=== PATIENT | male | born 1940 | race Caucasian/White ===

== ENCOUNTER 2016-08-21 14:19 | Observation (INO) ==
[2016-08-21] MEDS ORDERED: D50W SYRINGE ONE (14:29)
[2016-08-21] MEDS ORDERED: D50W SYRINGE IV ONE (14:30)
[2016-08-21] MEDS ORDERED: D5 NS 1,000 ML IV ONE ×2 (14:30→18:58)
[2016-08-21] MEDS ORDERED: D5 NS 1,000 ML ONE (14:30)
[2016-08-21 14:46] LABS: MANUAL DIFF NEEDED? NO
[2016-08-21 15:02] LABS: HEMATOCRIT 41.7 % (42.0-52.0); HEMOGLOBIN 13.6 g/dL (14.0-18.0); MCV 88.5 FL (81-99); RBC 4.71 XMIL (4.7-6.1)
[2016-08-21 15:03] LABS: BASO% 0.3 % (0.0-0.8); EOS# 0.06 X1000 (0.0-0.7); EOS% 0.8 % (0.0-10.0); LYMPH# 2.33 X1000 (1.2-3.4); LYMPH% 29.8 % (20.5-51.1); MCH 28.9 PG (27-31); MCHC 32.6 g/dL (33-37); MONO# 1.27 X1000 (0.11-0.59); MONO% 16.3 % (1.7-9.3); MPV 11.5 FL (7.4-10.4); NEUT% 52.7 % (42.2-75.2); PLT 277 X1000 (130-400)
[2016-08-21 15:09] LABS: INR 0.94 (0.86-1.15); PROTIME 12.9 Seconds (12.1-15.5); PTT PL 31.2 Seconds (22.6-43.9)
[2016-08-21 15:50] LABS: AGAP 9; ALBUMIN 3.8 g/dL (3.5-5.0); ALKALINE PHOSPHATASE 41 U/L (32-122); BUN 37 mg/dL (8-22); CALCIUM 8.8 mg/dL (8.8-10.2); CHLORIDE 95 mmol/L (98-107); CK PROFILE 153 U/L (24-204); COSMO 277; GOT 44 U/L (10-34); GPT 21 U/L (10-44); SODIUM 135 mmol/L (136-145); TCO2 30 mmol/L (25-35); TOTAL PROTEIN 7.2 g/dL (6.3-8.3)
--- NOTE | 2016-08-21 16:25 | EKG Report ---
Test Performed on : 08/21/2016 2:34:41 PM Test Reason : AMS Blood Pressure : / mmHG Vent. Rate : 063 BPM Atrial Rate : 063 BPM P-R Int : 268 ms QRS Dur : 106 ms QT Int : 406 ms P-R-T Axes : 076 057 055 degrees QTc Int : 415 ms Sinus rhythm. with 1st degree AV block. Otherwise normal ECG No previous ECGs available Unconfirmed Result
--- NOTE | 2016-08-21 16:51 | Diag Imaging Result Document ---
PROCEDURE NAME: CHEST-2 VIEWS - 08/21/2016 CHEST 2 VIEWS: COMPARISON: No comparison exam. FINDINGS: Heart size is normal. There is mild subsegmental atelectasis at the left base. There is a small opacity at the anterior right perihilar region. This may represent nodular lesion or small infiltrate. There is no other consolidation, pleural effusion, or pneumothorax identified. There is thoracic spondylosis or ankylosis noted. IMPRESSION: 1. Small opacity at right anterior perihilar region which may represent nodular lesion or small infiltrate. Followup by chest radiographs or correlation with CT thorax is recommended. 2. Mild atelectasis at left base.
--- NOTE | 2016-08-21 17:22 | ED EKG INTERP ---
This chart was entered by Amy Hung Scribe, acting as scribe for Carl Badillo MD. EKG Interpretation - EKG Time of EKG reading by physician:: 14:34 EKG Read and Signed by:: Carl Badillo EKG Interpretation (*Must complete 3 of following elements*): Normal Rate: 63 Rhythm: sinus rhythm with 1st degree AV block [place]: normal QRS: normal [place] Interval: normal ST Wave: normal This chart was documented by the indicated scribe, (Amy Hung Scribe) and accurately reflects the services I performed and decisions made by Aby goode Michael L., MD, as attested by the provider's signature.
--- NOTE | 2016-08-21 18:07 | PROVIDER DOCUMENTATION ---
This chart was entered by Amy Hung Scribe, acting as scribe for Carl Badillo MD. HPI-General Adult - General Chief Complaint: Low Blood Sugar Stated Complaint: AMS/BLOOD SUGAR Time Seen by Provider: 08/21/16 17:21 Source: patient, family Allergies/Adverse Reactions: Patient Allergies Allergy/AdvReac Type Severity Reaction Status Date / Time No Known Allergies Allergy Verified 08/21/16 14:25 Home Medications: Home Medication List Medication Instructions Recorded Confirmed Last Taken Type Aspirin [Aspir-Low] 1 tab PO 08/21/16 Unknown History Furosemide 40 mg PO DAILY 08/21/16 08/21/16 Unknown History Glyburide/Metformin [Glucovance 1 each PO BID CC 08/21/16 08/21/16 Unknown History 5-500 mg Tablet] Lisinopril/Hydrochlorothiazide 1 each PO DAILY 08/21/16 08/21/16 Unknown History [Zestoretic 20-12.5 mg Tablet] Metoprolol Succinate E.r. [Toprol PO DAILY 08/21/16 Unknown History Xl] Multivitamins/Minerals [Centrum 1 each PO DAILY 08/21/16 08/21/16 Unknown History Silver] [place]-3/Dha/Epa/Fish Oil [Fish Oil 1 each PO 08/21/16 Unknown History [place]-3 EC 1,200 mg] Pioglitazone HCl [Actos] 45 mg PO 08/21/16 Unknown History Potassium Chloride E.r. [Klor-Con] 1 tab PO 08/21/16 Unknown History Pravastatin Sodium 1 tab PO DAILY 08/21/16 08/21/16 Unknown History - History of Present Illness -Gen Adult Nature of Presenting Problems: 75 year old male presents to the ER via EMS for AMS. Pt is diabetic and has not been eating well the past couple of days. Pt had slurred speech and lethargic. Onset/Duration: reports: last night Timing: reports: still present Review of Systems - Adult - REVIEW OF SYSTEMS - ADULT Constitutional: denies: chills, fever Eyes: reports: no symptoms reported Ears, Nose, Mouth & Throat: reports: no symptoms reported Cardiovascular: reports: no symptoms reported Respiratory: reports: no symptoms reported Gastrointestinal: reports: no symptoms reported Genitourinary: reports: no symptoms reported Musculoskeletal: reports: no symptoms reported Integumentary: reports: no symptoms reported Neurological: reports: slurred speech, other (AMS) Psychiatric: reports: no symptoms reported Endocrine: reports: no symptoms reported Hematologic/Lymphatic: reports: no symptoms reported Allergic/Immunologic: reports: no symptoms reported All Other Systems: Reviewed and Negative Past History - Adult - PAST MEDICAL HISTORY-ADULT Review of Records: reports: Nursing Assessment Review, Medications Reviewed - IMMUNIZATION STATUS Childhood Immunizations: See Nurse Assessment Flu Vaccine: See Nurse Assessment Physical Exam-General - CONSTITUTIONAL General Appearance: alert, no apparent distress - EYES Eyes: PERRL/EOMI, pink conjunctivae - HEAD, EARS, NOSE, MOUTH & THROAT HENMT: normocephalic/atraumatic, moist mucous membranes - NECK Neck: non-tender, normal inspection - RESPIRATORY Respiratory: lungs clear, normal breath sounds - CARDIOVASCULAR Cardiovascular: normal peripheral pulses, regular rate, rhythm - MUSCULOSKELETAL Back Exam: no CVA tenderness, no vertebral tenderness Extremity: non-tender, normal inspection - SKIN Integumentary: normal color, warm/dry - NEUROLOGIC Neurologic: grossly normal, other (AMS) - PSYCHIATRIC Psych/Mental Status: disoriented x 3 Progress - PLAN OF CARE/RESULTS Progress/Plan/Lab Results: Vital Signs - 8 hr 08/21/16 14:25 Temperature 97.5 F L Pulse Rate 64 Respiratory Rate 20 Blood Pressure 133/063 O2 Sat by Pulse Oximetry 91 L Laboratory Results - last 24 hr 08/21/16 08/21/16 08/21/16 14:35 14:37 14:37 WBC 7.81 RBC 4.71 Hgb 13.6 L Hct 41.7 L MCV 88.5 MCH 28.9 MCHC 32.6 L RDW Std Deviation 15.9 H Plt Count 277 MPV 11.5 H Neut % (Auto) 52.7 Lymph % (Auto) 29.8 [place] % (Auto) 16.3 H Eos % (Auto) 0.8 Baso % (Auto) 0.3 Neut # (Auto) 4.12 Lymph # (Auto) 2.33 [place] # (Auto) 1.27 H Eos # (Auto) 0.06 Baso # (Auto) 0.02 PT INR APTT (Factor Assay) Sodium Potassium Chloride Carbon Dioxide Anion Gap BUN Creatinine BUN/Creatinine Ratio Glucose Calculated Osmolality Calcium Total Bilirubin AST ALT Alkaline Phosphatase Creatine Kinase Troponin T Total Protein Albumin Globulin Albumin/Globulin Ratio Plasma Lactate 2.2 Influenza A (Rapid) NEGATIVE Influenza B (Rapid) NEGATIVE 08/21/16 08/21/16 08/21/16 14:37 15:20 15:20 WBC RBC Hgb Hct MCV MCH MCHC RDW Std Deviation Plt Count MPV Neut % (Auto) Lymph % (Auto) [place] % (Auto) Eos % (Auto) Baso % (Auto) Neut # (Auto) Lymph # (Auto) [place] # (Auto) Eos # (Auto) Baso # (Auto) PT 12.9 INR 0.94 APTT (Factor Assay) 31.2 Sodium 135 L Potassium 4.0 Chloride 95 L Carbon Dioxide 30 Anion Gap 9 BUN 37 H Creatinine 1.0 BUN/Creatinine Ratio 37 Glucose 68 L Calculated Osmolality 277 Calcium 8.8 Total Bilirubin 0.20 AST 44 H ALT 21 Alkaline Phosphatase 41 Creatine Kinase 153 Troponin T < 0.010 Total Protein 7.2 Albumin 3.8 Globulin 3.0 Albumin/Globulin Ratio 1.0 Plasma Lactate Influenza A (Rapid) Influenza B (Rapid) Orders Category Date Time Status Cardiac Monitoring DIRECTED Care 08/21/16 14:27 Active Finger Stick Blood Sugar (ED) DIRECTED Care 08/21/16 14:27 Active Oxygen Therapy- ED Nursing DIRECTED Care 08/21/16 14:27 Active Saline Loc NOW Care 08/21/16 14:27 Active CHEST-2 VIEWS [RAD] Stat Exams 08/21/16 14:27 Draft BLOOD CULTURE [BLDCUL] Stat Lab 08/21/16 14:48 Ordered CBC WITH ELECTRONIC DIFF [HEME] Stat Lab 08/21/16 14:37 Completed CK PROFILE [SP CHEM] Stat Lab 08/21/16 15:20 Completed COMPREHENSIVE METABOLIC PANEL [CHEM] Stat Lab 08/21/16 15:20 Completed Flu [INFLUENZA SCREEN PL] Stat Lab 08/21/16 14:35 Completed LACTATE, PLASMA [CHEM] Stat Lab 08/21/16 14:37 Com[address]IME WITH INR [address] [COAG] Stat Lab 08/21/16 14:[address] [COAG] Stat Lab 08/21/16 14:37 Completed TROPONIN T Stat Lab 08/21/16 15:20 Completed Dextrose 5%-0.9% NaCl Inj [D5 Ns] 1,000 ml Med 08/21/16 14:30 Discontinued .ROUTE As Directed Dextrose 5%-0.9% NaCl Inj [D5 Ns] 1,000 ml Med 08/21/16 14:30 Active IV 100 mls/hr Dextrose 50% Syringe [D50w Syringe] Med 08/21/16 14:29 Discontinued 50 ml .ROUTE .STK-MED ONE Dextrose 50% Syringe [D50w Syringe] Med 08/21/16 14:30 Discontinued 50 ml IV NOW ONE Pulse Oximetry Stat Oth 08/21/16 14:27 Active EKG [EKG] Stat Ther 08/21/16 14:27 Draft Result Diagrams: 08/21/16 14:37 08/21/16 15:20 - XRAY 1 XRAY Study: Chest Impression: Abnormal XRAY Interpretation: small opacity @ right perhilar region Departure - Departure Time of Disposition Decision: 18:06 DIAGNOSIS: Hypoglycemia secondary to sulfonylurea Qualifiers: Encounter type: initial encounter Injury intent: accidental or unintentional Qualified Code(s): T38.3X1A - Poisoning by insulin and oral hypoglycemic [ antidiabetic] drugs, accidental (unintentional), initial encounter Disposition: ADMITTED INPATIENT 09 Certified Medical Emergency: Emergent Condition: Stable Referrals and Follow-Ups: Omid Wood MD [Primary Care Provider] - This chart was documented by the indicated scribe, (Amy Hung, Scribe) and accurately reflects the services I performed and decisions made by , Carl Badillo MD, as attested by the provider's signature.
[2016-08-21] MEDS ORDERED: LOVENOX SUBQ SCH (20:30)
[2016-08-21] MEDS ORDERED: PRAVACHOL PO SCH (21:00)
--- NOTE | 2016-08-21 21:11 | HISTORY AND PHYSICAL ---
CHIEF COMPLAINT: Altered mental status. HISTORY OF PRESENT ILLNESS: Mr. Villegas is a 75-year-old gentleman who was brought into the emergency room after his daughter found him to have slurred speech and lethargy. The patient states that she took his glyburide/metformin along with Actos this morning but did not eat his breakfast. This is the third time that this has happened to him over the past 3 months. He denies having any fall or any other trauma. He also denies having any chest pain, shortness of breath or dizziness at this time. He has completely improved at the time of this dictation. PAST MEDICAL HISTORY: 1. Type 2 diabetes mellitus. 2. Hypertension. 3. Dyslipidemia. 4. Morbid obesity. 5. COPD. 6. Congestive heart failure. ALLERGIES: No known drug allergies reported. CURRENT HOME MEDICATIONS: 1. Aspirin 81 mg orally once daily. 2. Metoprolol ER 50 mg orally once daily. 3. Glyburide/metformin 5 mg/500 mg orally twice daily. 4. Lisinopril/hydrochlorothiazide 20 mg/12.5 mg orally once daily in the morning. 5. Furosemide 40 mg orally once daily. 6. Potassium chloride 20 mEq orally once daily. 7. Pravastatin 40 mg orally once daily at bedtime. 8. Actos 45 mg orally once daily. 9. Multivitamin orally once daily. 10. [place]-3 fish oil capsule 1200 mg orally once daily. SOCIAL HISTORY: The patient quit smoking in 1990 after smoking 2-3 packs of cigarettes per day for about 35 years. He denies drinking alcohol and has never used any recreational drugs. He lives here in [place] with his . FAMILY HISTORY: Noncontributory. REVIEW OF SYSTEMS: A full 14-point review of system was obtained that was pretty much the same as already has been explained in the HPI. PHYSICAL EXAMINATION: VITAL SIGNS: Temperature 98.8 degrees, pulse 72 per minute, respiratory rate 18 per minute, blood pressure 140/52, pulse oximetry 94% on room air. GENERAL: Patient is alert and oriented x3. He does not appear to be in any acute distress at this time. HEENT: Within normal limits. NECK: Supple without any thyromegaly. LYMPHATICS: No lymphadenopathy noted in the neck region. CHEST: Chest wall is nontender. CARDIOVASCULAR: First and second heart sounds are audible without any murmurs or gallops. RESPIRATORY: Bilateral lung air entry is somewhat decreased, but there are no rales or rhonchi present on auscultation. GASTROINTESTINAL: Patient is morbidly obese. Abdomen is soft and nontender on palpation. Normal bowel sounds are present. MUSCULOSKELETAL: No deformities are present. PSYCHIATRIC: Normal affect noted. NEUROLOGIC: No focal deficits are present. GENITOURINARY: Deferred. INTEGUMENTARY: Skin is warm, dry, and without any rash. DIAGNOSTIC DATA: CBC is nondiagnostic and PT/INR along with PTT are within normal limits. Chemistry showed glucose levels of 33 on presentation to the emergency room. But later on that improved to 68. BUN is slightly elevated at 37, but creatinine levels are normal at 1. Rest of the comprehensive metabolic panel is nondiagnostic. Cardiac enzymes have been negative, and influenza screen is also found to be negative. Chest x-ray obtained at the emergency room showed possible right anterior perihilar region pulmonary nodule. CT scan has been recommended for further evaluation. ECG obtained at the emergency room showed sinus rhythm with a ventricular rate of 63 beats per minute without any acute ischemic abnormalities. IMPRESSION: 1. Altered mental status with hypoglycemia in this 75-year-old gentleman who has history of diabetes and has other comorbid conditions including hypertension, dyslipidemia, chronic obstructive pulmonary disease, congestive heart failure, and morbid obesity. 2. Pulmonary nodule. PLAN: The patient has been admitted as observation, and we are going to hold his Actos along with glyburide/metformin at this time. He has been receiving D5 half NS at 100 mL per hour which will be continued. I am going to give him lispro insulin subcutaneously as per low- dose sliding scale, however. Would continue with the rest of his medications and obtain a CT scan of the chest with IV contrast for further evaluation of pulmonary nodule. VTE prophylaxis will be provided with enoxaparin 40 mg subcutaneously every 24 hours. The patient can probably be discharged home within the next 24 to 48 hours once his glucose levels are stabilized. cc: MD Omid Flowers MD MTDD
[2016-08-21] MEDS: HUMALOG DOSE (PARKWAY) SUBQ SCH (22:11)
[2016-08-22] MEDS: HUMALOG DOSE (PARKWAY) SUBQ SCH ×2 (06:19→12:57)
--- NOTE | 2016-08-22 08:51 | Diag Imaging Result Document ---
PROCEDURE NAME: CT THORAX W/CONTRAST - 08/22/2016 CT OF THE CHEST WITH INTRAVENOUS CONTRAST: FINDINGS: There is a rounded opacity in the inferior portion of the right upper lobe best seen around image 94. This measures 25 mm in diameter and has air bronchograms within it. This is just above the minor fissure. There are some scattered blebs. There is atelectasis or fibrosis in the left base. The esophagus is somewhat thickened in appearance particularly at the level of the aortic arch. There is no evidence of significant adenopathy. There are coronary calcifications. There are spondylotic changes in the thoracic spine. IMPRESSION: Focal opacity in the right upper lobe. This may represent a chronic infectious process; however, the possibility of neoplastic disease cannot be excluded and comparison with previous studies if available is recommended.
[2016-08-22] MEDS ORDERED: HYDROCHLOROTHIAZIDE PO SCH (09:00)
[2016-08-22] MEDS ORDERED: PRINIVIL PO SCH (09:00)
[2016-08-22] MEDS ORDERED: LASIX PO SCH (09:00)
[2016-08-22] MEDS ORDERED: ASPIRIN EC PO SCH (09:00)
[2016-08-22] MEDS ORDERED: FISH OIL CONCENTRATE PO SCH (09:00)
[2016-08-22] MEDS ORDERED: THERA M PLUS PO SCH (09:00)
[2016-08-22] MEDS ORDERED: TOPROL XL PO SCH (09:00)
[2016-08-22] MEDS ORDERED: KLOR-CON PO SCH (09:00)
[2016-08-22] MEDS ORDERED: SALINE LOCK IV FLUID XX ONE (09:21)
--- NOTE | 2016-08-22 09:52 | PROGRESS NOTE ---
DATE: 08/22/2016 OBJECTIVE: Vital signs: Vital signs stable with temperature 98.1 degrees, heart rate 72, respiration 18, blood pressure 138/61 O2. Saturation 91% on room air. Blood sugar has stabilized with the last 2 sugars being 126 and 125, respectively. Initially sugar was 63. His speech difficulty has resolved and neurologic status is baseline this morning. There is no focal weakness. There was a possible pulmonary nodule on chest x-ray and CT scan of his chest was done this morning. Results are pending. PLAN: Probably be discharged home this afternoon. IV is changed from D5 to saline lock. cc: Omid Wood MD
[2016-08-22] MEDS ORDERED: TYLENOL PO PRN ×2 (13:29→13:40)
[2016-08-22 14:59] VITALS: BP 137/60
--- NOTE | 2016-08-23 01:07 | DISCHARGE SUMMARY ---
ADMISSION DATE: 08/21/2016 DISCHARGE DATE: 08/22/2016 FINAL DIAGNOSES: 1. Hypoglycemia. 2. Type 2 diabetes. 3. Gross obesity. 4. Hyperlipidemia. 5. Hypertriglyceridemia. 6. Peripheral edema. 7. Small pulmonary nodule, right mid lung field, nonspecific by CT. HISTORY: This is the first recent [facility] admission for this 75-year-old, white man, diabetic, who took his medications, including glyburide, metformin and Actos, and did not eat breakfast. He had an episode of confusion and was brought to the emergency room. His blood sugar was 63. He was given D50 and D5W. A couple of additional sugars were low before being stabilized. He was kept overnight. INITIAL LABORATORY: Hemoglobin 13.6, hematocrit 41.7, white blood count 7,800 with normal differential. INR was 0.94. Influenza A and B were negative. HOSPITAL COURSE: Chest x-ray revealed a possible pulmonary nodule in the right mid lung field. CT scan this morning of his chest revealed focal opacity in the right upper lobe. This may represent a chronic infectious process, but the possibility of neoplastic disease could not be excluded. Comparison x-rays were not available. His p.o. diabetic medicines were held, and he was placed on a sliding scale with low-dose insulin. He did not require insulin. Last blood sugar was 114 on no intravenous dextrose. He is feeling well this afternoon, and is discharged home on his usual medications, except Actos was discontinued. He is to be seen back in the office in 2 weeks or as needed for followup. cc: Omid Wood MD
== END 2016-08-22 15:25 | disposition home or self-care (01) ==
LOC: P.MEDSURG 14:19 → P.ED 14:19
PROVIDERS: ADMIT Family Medicine; ATTEND Family Medicine